=== PATIENT | female | born 1990 | race Hispanic/Latino ===

== ENCOUNTER 2017-08-12 13:08 | Observation (INO) | payer OTHER ==
[~2017-08-12] VITALS: Ht 162.6 cm; Wt 103.4 kg
[2017-08-12 13:39] LABS: APPEARANCE,URINE CLEAR (CLEAR); BILIRUBIN,URINE NEGATIVE (NEGATIVE); COLOR,URINE YELLOW (YELLOW); GLUCOSE, URINE (UA) NEGATIVE (NEGATIVE); KETONES,URINE NEGATIVE (NEGATIVE); LEUKOCYTE ESTERASE ,URINE MODERATE (NEGATIVE); NITRATE,URINE NEGATIVE (NEGATIVE); OCCULT BLOOD,URINE NEGATIVE (NEGATIVE); PH,URINE 6.5 (5.0-8.0); PROTEIN,URINE NEGATIVE (NEGATIVE); UROBILINOGEN,URINE 0.2 mg/dL (0.2-1.0)
[2017-08-12 14:07] LABS: RBC,URINE None Seen /HPF (0-1)
[2017-08-12 14:08] LABS: BACTERIA,URINE None Seen /HPF (None Seen)
[2017-08-13] MEDS ORDERED: PREN-196 PO (04:52)
== END 2017-08-12 16:15 | disposition home or self-care (01) ==
LOC: EDH 13:08 → LDH 13:09
PROVIDERS: ADMIT Obstetrics & Gynecology; ATTEND Obstetrics & Gynecology
DX: O48.0 Post-term pregnancy (principal); O75.82 Onset (spontaneous) of labor after 37 completed weeks of gestation but before 39 completed weeks gestation, with delivery by (planned) cesarean section; Z3A.40 40 weeks gestation of pregnancy
CPT/HCPCS: 81001; 99285; G0378 ×3

== ENCOUNTER 2017-08-13 04:39 | Inpatient (IN) | payer OTHER ==
[~2017-08-13] VITALS: Ht 162.6 cm; Wt 101.6 kg
[2017-08-13] MEDS ORDERED: PREN-196 PO (04:52)
[2017-08-13 05:04] LABS: APPEARANCE,URINE Clear (CLEAR); BILIRUBIN,URINE Negative (NEGATIVE); COLOR,URINE Yellow (YELLOW); GLUCOSE, URINE (UA) Negative (NEGATIVE); KETONES,URINE Negative (NEGATIVE); LEUKOCYTE ESTERASE ,URINE Large (NEGATIVE); NITRATE,URINE Negative (NEGATIVE); OCCULT BLOOD,URINE Large (NEGATIVE); PH,URINE 7.5 (5.0-8.0); PROTEIN,URINE Negative (NEGATIVE)
[2017-08-13 05:13] LABS: BACTERIA,URINE Rare /HPF (None Seen)
[2017-08-13] MEDS: LACTATED RINGERS 1000ML IV PRN ×2 (05:19→06:00)
[2017-08-13] MEDS ORDERED: LACTATED RINGERS 1000ML 1,000 ML IV PRN (05:56)
[2017-08-13] MEDS ORDERED: OXYTOCIN 10 USP UNITS/ML 20 UNIT in LACTATED RINGERS 1000ML 1,000 ML IV SCH (06:00)
[2017-08-13 06:08] LABS: HEMATOCRIT 36.6 % (36-48); MEAN CORPUSCULAR HEMOGLOBIN 33.3 pg (27.0-33.0); MEAN CORPUSCULAR HGB CONC 34.9 g/dL (32.0-36.0); MEAN CORPUSCULAR VOLUME 95.3 fL (79-99); PLATELET COUNT (AUTO) 198 K/uL (130-400); RED BLOOD CELL COUNT(AUTO) 3.84 MIL/uL (4.00-5.50); RED CELL DISTRIBUTION WIDTH 12.5 % (11.0-15.5); WHITE BLOOD COUNT (AUTO) 12.7 K/uL (4.8-10.8)
[2017-08-13] MEDS ORDERED: OXYTOCIN 10 USP UNITS/ML ONE ×2 (06:40→19:35)
[2017-08-13] MEDS ORDERED: LACTATED RINGERS 1000ML 1,000 ML IV ONE ×2 (06:40→19:35)
[2017-08-13] MEDS ORDERED: EPHEDRINE SULFATE 50 MG/ML AMPULE IVP PRN (11:15)
[2017-08-13] MEDS ORDERED: NALOXONE HCL 0.4 MG/1 ML ML IV PRN (11:15)
[2017-08-13] MEDS ORDERED: LACTATED RINGERS 500 ML 500 ML IV PRN (11:15)
[2017-08-13] MEDS ORDERED: PROMETHAZINE HCL 25 MG/ML 1ML AMPULE IM ONE (12:20)
[2017-08-13] MEDS ORDERED: MEPERIDINE-PF 50 MG/ML SYG ONE (12:20)
[2017-08-13] MEDS: PROMETHAZINE HCL 25 MG/ML 1ML AMPULE IM SCH ×2 (12:23→23:34)
[2017-08-13] MEDS: MEPERIDINE-PF 50 MG/ML SYG IVP SCH (12:23)
[2017-08-13] MEDS ORDERED: FENTANYL CITRATE PF 50 MCG/1 ML 2ML VIAL ONE (12:42)
[2017-08-13] MEDS ORDERED: LIDOCAINE HCL 1% 20 ML VIAL ONE (18:35)
[2017-08-13] MEDS ORDERED: METHYLERGONOVINE MALEATE 0.2 MG/1 ML ML ONE (18:46)
[2017-08-13 19:00] VITALS: BP 130/78
[2017-08-13] MEDS ORDERED: ACETAMINOPHEN-CODEINE 300/30MG TAB PO PRN (19:00)
[2017-08-13] MEDS ORDERED: ACETAMINOPHEN 325 MG TAB PO PRN (19:00)
[2017-08-13] MEDS ORDERED: LANOLIN 30GM OINTMENT TP PRN (19:00)
[2017-08-13] MEDS ORDERED: WITCH HAZEL 1 PAD TP PRN (19:00)
[2017-08-13] MEDS ORDERED: MEASLES/MUMPS/RUBELLA VACCINE, LIVE 0.5 ML/VIAL SQ PRN (19:00)
[2017-08-13] MEDS: OXYTOCIN-LR 20 UNITS/1000 ML 1,000 ML IV SCH ×2 (19:00→23:35)
[2017-08-13] MEDS ORDERED: BENZOCAINE/LANOLIN/ALOE VERA 60 ML AEROSOL TP PRN (19:00)
[2017-08-13] MEDS ORDERED: DIPH,PERTUSS(ACELL),TET VAC/PF 0.5 ML VIAL IM PRN (19:00)
[2017-08-13] MEDS: IBUPROFEN 800 MG TAB PO PRN (20:44)
[2017-08-13] MEDS: DOCUSATE SODIUM 100 MG CAP PO SCH (20:45)
[2017-08-13 21:05] VITALS: BP 123/66
[2017-08-13 22:54] VITALS: BP 105/58
[2017-08-14 03:00] VITALS: BP 91/46
[2017-08-14 06:36] LABS: HEMATOCRIT 28.3 % (36-48); MEAN CORPUSCULAR HEMOGLOBIN 34.3 pg (27.0-33.0); MEAN CORPUSCULAR HGB CONC 35.6 g/dL (32.0-36.0); MEAN CORPUSCULAR VOLUME 96.4 fL (79-99); PLATELET COUNT (AUTO) 175 K/uL (130-400); RED BLOOD CELL COUNT(AUTO) 2.93 MIL/uL (4.00-5.50); RED CELL DISTRIBUTION WIDTH 12.5 % (11.0-15.5); WHITE BLOOD COUNT (AUTO) 15.1 K/uL (4.8-10.8)
[2017-08-14 07:57] VITALS: BP 90/49
[2017-08-14] MEDS: DOCUSATE SODIUM 100 MG CAP PO SCH (09:29)
[2017-08-14] MEDS: IBUPROFEN 800 MG TAB PO PRN ×2 (09:35→18:19)
[2017-08-14 11:31] VITALS: BP 89/49
[2017-08-14] MEDS: MEPERIDINE-PF 50 MG/ML SYG IVP SCH (12:30)
[2017-08-14] MEDS ORDERED: EPHEDRINE SULFATE 50 MG/ML AMPULE IV ONE (14:20)
[2017-08-14 15:46] VITALS: BP 104/62
[2017-08-15 08:24] LABS: HEPATITIS Bs ANTIGEN SCREEN P Negative (Negative)
== END 2017-08-14 19:55 | disposition home or self-care (01) | DRG 775 ==
LOC: EDH 04:39 → OBSVTOIN 04:40 → LDH 04:40 → WSH 21:05
PROVIDERS: ADMIT Obstetrics & Gynecology; ATTEND Obstetrics & Gynecology
PROC: 10E0XZZ Delivery of Products of Conception, External Approach (ICD-10-PCS; principal; 2017-08-13)
PROC: 0UQMXZZ Repair Vulva, External Approach (ICD-10-PCS; 2017-08-13)
PROC: 3E0234Z Introduction of Serum, Toxoid and Vaccine into Muscle, Percutaneous Approach (ICD-10-PCS; 2017-08-13)
PROC: 3E0134Z Introduction of Serum, Toxoid and Vaccine into Subcutaneous Tissue, Percutaneous Approach (ICD-10-PCS; 2017-08-13)
DX: O77.0 Labor and delivery complicated by meconium in amniotic fluid (principal); O71.82 Other specified trauma to perineum and vulva; Z37.0 Single live birth; Z3A.39 39 weeks gestation of pregnancy; Z23 Encounter for immunization
CPT/HCPCS: 36415; 85027; 86592; 86850; 86900; 86901; 87340; A4314; A4351; J2175; J2210; J2550; J2590; J3010; J3490; J7120

== ENCOUNTER 2019-09-19 22:29 | Emergency (ER) | payer OTHER ==
[~2019-09-19 22:29] MED LIST: PREN-196 PO
== END 2019-09-19 22:55 | disposition home or self-care (01) ==
LOC: EDH 22:29
DX: J09.X2 Influenza due to identified novel influenza A virus with other respiratory manifestations (principal)
CPT/HCPCS: 87804